=== PATIENT | female | born 1980 | race Asian ===

== ENCOUNTER 2016-11-22 09:19 | Emergency (ER) | payer MEDICAID ==
[~2016-11-22] VITALS: Ht 157.5 cm; Wt 63.5 kg
[2016-11-22 09:22] VITALS: BP_SYST 136
--- NOTE | 2016-11-22 09:30 | NUR ---
Pt report received from LILY Reid. Pt c/o non-productive cough with sore throat x 1 week, worsening last night. Even and non-labored respirations, BBS clear.
--- NOTE | 2016-11-22 09:30 | NUR ---
Patient to ER bed 8 to gown for evaluation. Side rails up. Report given to Alex BAUTISTA.
--- NOTE | 2016-11-22 09:33 | NUR ---
Dr. Payne at bedside to assess pt.
[2016-11-22 10:00] VITALS: BP_SYST 125
--- NOTE | 2016-11-22 10:00 | NUR ---
Patient given written and verbal discharge instructions and verbalizes understanding. ER MD discussed with patient the results and treatment provided. Patient in stable condition. ID arm band removed. Rx of Sudafed, Azithromycin, Albuterol given. Patient educated on pain management and to follow up with PMD. Pain Scale 0/10. Opportunity for questions provided and answered.
== END 2016-11-22 10:00 | disposition home or self-care (01) ==
LOC: SED 09:19
DX: J40 Bronchitis, not specified as acute or chronic (principal)
CPT/HCPCS: 71010; 99283

== ENCOUNTER 2016-11-30 14:34 | Emergency (ER) | payer MEDICAID ==
[~2016-11-30] VITALS: Ht 157.5 cm; Wt 63.5 kg
[2016-11-30 14:40] VITALS: BP 102/64; PULSE 82; RESP 18; TEMP 97.3; O2SAT 100
[2016-11-30 14:59] VITALS: BP 112/78; PULSE 99; RESP 14; TEMP 98.4; O2SAT 98
--- NOTE | 2016-11-30 15:00 | NUR ---
Dr. Mcfadden at the bedside evaluating Pt. Currently awaiting new orders.
--- NOTE | 2016-11-30 15:01 | NUR ---
Received Pt in bed 7. Pt stated she had bronchitis last week. Pt wanted to follow up on her current condition. Pt denies cough, sputum, and SOB. Lung sounds clear throughout all lobes.
--- NOTE | 2016-11-30 15:06 | NUR ---
Patient given written and verbal discharge instructions and verbalizes understanding. ER MD discussed with patient the results and treatment provided. Given copies of tests performed in ER. Patient in stable condition. ID arm band removed. Rx of tylenol given. Patient educated on pain management and to follow up with PMD. Pain Scale 0/10. Opportunity for questions provided and answered.
== END 2016-11-30 15:00 | disposition home or self-care (01) ==
LOC: SED 14:34
DX: J20.9 Acute bronchitis, unspecified (principal)
CPT/HCPCS: 99283

== ENCOUNTER 2016-12-06 13:48 | Emergency (ER) | payer MEDICAID ==
[~2016-12-06] VITALS: Ht 157.5 cm; Wt 63.5 kg
[2016-12-06 14:17] VITALS: BP_SYST 128
== END 2016-12-06 15:52 | disposition left against medical advice (07) ==
LOC: SED 13:48
DX: H57.8 Other specified disorders of eye and adnexa (principal); Z53.20 Procedure and treatment not carried out because of patient's decision for unspecified reasons
CPT/HCPCS: 99281